=== PATIENT | male | born 1995 | race Two or more races ===

== ENCOUNTER 2017-03-29 15:07 | Emergency (ER) | payer OTHER ==
[2017-03-29 15:18] VITALS: BP 123/82; PULSE 89; TEMP 97.9; BMI 24.0
[2017-03-29] MEDS ORDERED: IBUPROFEN 600 MG TABLET (FP) PO ONE ×2 (16:23→16:25)
--- NOTE | 2017-03-29 16:30 | PDOC ---
History of Present Illness - General Chief Complaint: Headache Stated Complaint: HEADACHE Time Seen by Provider: 03/29/17 15:59 History Source: Patient Exam Limitations: No Limitations - History of Present Illness Initial Comments: 03/29/17 16:23 Patient here with complaints of persistent headache 1 month. Denies any exercise changes or any trauma, denies any illness or history of headaches. Denies earache sore throat coughing sneezing or fevers. Denies any numbness or tingling, visual changes or weakness in any extremity one or the other side or both. Denies nausea vomiting diarrhea or constipation. Has had no history of neurologic or headache issue. No one at home or no family history of significant neurologic disease. Has taken ibuprofen with some remittent resolve. Is currently unemployed, denies acute stressors in life, denies alcohol or drug use. Severity: Yes: moderate Associated Symptoms: denies: confusion, fatigue, fever/chills, loss of consciousness, nausea/vomiting, numbness in legs/feet, paresthesia, weakness Past History - Travel Traveled outside of the country in the last 30 days: No Close contact w/someone who was outside of country & ill: No - Past Medical History Allergies/Adverse Reactions: Allergies Allergy/AdvReac Type Severity Reaction Status Date / Time No Known Allergies Allergy Verified 03/29/17 15:15 Home Medications: Ambulatory Orders NK [No Known Home Medication] 03/29/17 Asthma: Yes CVA: No COPD: No DVT: No - Immunization History Immunization Up to Date: Yes - Suicide/Smoking/Psychosocial Hx Smoking Status: No Smoking History: Never smoked Have you smoked in the past 12 months: No Number of Cigarettes Smoked Daily: 0 Information on smoking cessation initiated: No Hx Alcohol Use: No Drug/Substance Use Hx: No Substance Use Type: None Review of Systems - Review of Systems Able to Perform ROS?: Yes Is the patient limited Sinhala proficient: Yes Constitutional: Yes: See HPI. No: Symptoms Reported, Fever, Loss of Appetite, Malaise, Weakness HEENTM: Yes: See HPI. No: Symptoms Reported, Eye Pain, Blurred Vision, Throat Pain Respiratory: Yes: See HPI. No: Symptoms reported, Cough ABD/GI: Yes: See HPI. No: Symptoms Reported, Nausea, Vomiting Musculoskeletal: Yes: See HPI, Neck Pain. No: Symptoms Reported Integumentary: No: Symptoms Reported Neurological: Yes: Symptoms reported, Headache. No: Numbness, Paresthesia, Seizure, Tingling, Tremors, Weakness, Unsteady Gait, Ataxia, Dizziness All Other Systems: Reviewed and Negative *Physical Exam - Vital Signs Last Vital Signs Temp Pulse Resp BP Pulse Ox 97.9 F 89 16 123/82 98 03/29/17 15:15 03/29/17 15:15 03/29/17 15:15 03/29/17 15:15 03/29/17 15:15 - Physical Exam General Appearance: Yes: Nourished, Appropriately Dressed, Mild Distress. No: Apparent Distress HEENT: positive: [place], Normal ENT Inspection, TMs Normal (clear/ Congested ) Neck: positive: Tender, Supple. negative: Lymphadenopathy (R), Lymphadenopathy (L) Respiratory/Chest: positive: Lungs Clear, Normal Breath Sounds Cardiovascular: positive: Regular Rate Gastrointestinal/Abdominal: positive: Normal Bowel Sounds, Soft. negative: Tender Musculoskeletal: positive: Normal Inspection Extremity: positive: Normal Capillary Refill, Normal Inspection, Normal Range of Motion, Tender Integumentary: positive: Normal Color, Dry, Warm, Pale Neurologic: positive: tassel snipper II-XII NML intact, Fully Oriented, Alert, Normal Mood/ Affect, Normal Response, Motor Strength 5/5 ED Treatment Course - RADIOLOGY Radiology Studies Ordered: Category Date Time Status HEAD CT WITHOUT CONTRAST [CT] Stat CT Scan 03/29/17 16:22 Ordered Medical Decision Making - Medical Decision Making 03/29/17 17:58 ct head= negative *DC/Admit/Observation/Transfer Diagnosis at time of Disposition: Tension headache - Discharge Dispostion Disposition: HOME Condition at time of disposition: Stable Admit: No - Referrals Referrals: Dario Hughes DO [Staff Physician] - - Patient Instructions Printed Discharge Instructions: Tension Headache Additional Instructions: rest, Drink lots of fluids Avoid heavy lifting or strenous activity until symptoms resolved May use Ibuprofen 600mg every 6 hours for pain - Post Discharge Activity
== END 2017-03-29 19:08 | disposition home or self-care (01) ==
LOC: JERFT 15:07
DX: G44.209 Tension-type headache, unspecified, not intractable (principal)
CPT/HCPCS: 70450-TC; 99281-25